=== PATIENT | female | born 1965 | race Caucasian/White ===

== ENCOUNTER 2017-08-10 16:04 | Emergency (ER) | payer OTHER ==
[~2017-08-10] VITALS: Ht 160 cm; Wt 68.6 kg
[~2017-08-10 16:04] MED LIST: AMITIZA24 MCG PO; CYMBALTA 60MG60 MG PO; DESYREL 100MG100 MG PO; PROTONIX20 MG PO; SYNTHROID0.112 MG/T PO; VALTREX 50500 MG/TAB PO; XANAX 1MG1 MG PO
[2017-08-10 16:08] VITALS: TEMP 98.2
[2017-08-10] MEDS ORDERED: FLOVENT 110MCG7.9 GM IH (16:26)
[2017-08-10] MEDS ORDERED: PROTONIX 40MG T40 MG PO (16:26)
[2017-08-10] MEDS ORDERED: TYLENOL W/COD1 UDTAB PO (17:59)
[2017-08-10] MEDS ORDERED: VOLTAREN 75 DR75 MG PO (17:59)
[2017-08-10 18:11] VITALS: BP 120/91; PULSE 76
== END 2017-08-10 18:09 | disposition home or self-care (01) ==
LOC: COL.ER 16:04
DX: R51 Headache (principal); E03.9 Hypothyroidism, unspecified; R11.0 Nausea; R20.0 Anesthesia of skin
CPT/HCPCS: J3010

== ENCOUNTER 2017-12-19 10:21 | Emergency (ER) | payer OTHER ==
[~2017-12-19] VITALS: Ht 160 cm; Wt 70.9 kg
[~2017-12-19 10:21] MED LIST changes: +FLOVENT 110MCG7.9 GM IH; +PROTONIX 40MG T40 MG PO; +TYLENOL W/COD1 UDTAB PO; +VOLTAREN 75 DR75 MG PO
[2017-12-19 11:30] LABS: INFLUENZA A NEGATIVE; INFLUENZA B NEGATIVE
[2017-12-19] MEDS ORDERED: PREDNISONE20 MG PO (11:52)
[2017-12-19 12:06] VITALS: BP 116/83; PULSE 88; TEMP 98
== END 2017-12-19 12:05 | disposition home or self-care (01) ==
LOC: COL.ER 10:21
PROVIDERS: Nurse Practitioner
DX: J44.9 Chronic obstructive pulmonary disease, unspecified (principal); K58.9 Irritable bowel syndrome, unspecified; E07.9 Disorder of thyroid, unspecified; F17.210 Nicotine dependence, cigarettes, uncomplicated; Z98.51 Tubal ligation status; Z90.49 Acquired absence of other specified parts of digestive tract; Z79.51 Long term (current) use of inhaled steroids

== ENCOUNTER 2018-01-05 10:50 | Emergency (ER) | payer OTHER ==
[~2018-01-05 10:50] MED LIST changes: +PREDNISONE20 MG PO
[2018-01-05 10:58] VITALS: BP 130/73; PULSE 86; TEMP 98.1
[2018-01-05] MEDS ORDERED: ASPIRIN 81M81 MG/TA2 PO (11:42)
== END 2018-01-05 11:53 | disposition home or self-care (01) ==
LOC: COL.ER 10:50
DX: S01.01XD Laceration without foreign body of scalp, subsequent encounter (principal); I10 Essential (primary) hypertension; Z79.82 Long term (current) use of aspirin; Z79.51 Long term (current) use of inhaled steroids; X58.XXXD Exposure to other specified factors, subsequent encounter

== ENCOUNTER 2019-01-15 11:38 | Emergency (ER) | payer OTHER ==
[~2019-01-15] VITALS: Ht 160 cm; Wt 68.2 kg
[~2019-01-15 11:38] MED LIST changes: +ASPIRIN 81M81 MG/TA2 PO
[2019-01-15 11:45] VITALS: TEMP 97.4
[2019-01-15 16:40] VITALS: BP 121/89; PULSE 78
[2019-01-16 15:03] LABS: COLLECTION METHOD CLEAN CATCH
[2019-01-16 15:05] LABS: MUCOUS Present /lpf; PH 5 (5-8); SQUAMOUS EPITHELIAL 0-2 /hpf; URINE APPEARANCE Clear; URINE BACTERIA None Seen /hpf; URINE BILIRUBIN Negative (NEGATIVE); URINE BLOOD Negative (NEGATIVE); URINE COLOR Yellow; URINE GLUCOSE Negative (NEGATIVE); URINE KETONE Negative (NEGATIVE); URINE LEUKOCYTE ESTERASE Negative (NEGATIVE); URINE NITRATE Negative (NEGATIVE); URINE PROTEIN(semi-quant) Negative (NEGATIVE); URINE RBC 0-2 /hpf; URINE UROBILINOGEN Negative (NEGATIVE)
[2019-01-16 15:21] LABS: BASO # 0.1 (0.0-0.2); BASO % 0.9 % (0.0-2.0); EOS # 0.3 (0.0-0.7); GRAN # 4.3 (1.4-6.5); GRAN % 55.3 % (42.2-75.2); HEMATOCRIT 42.5 % (37.0-47.0); LYMPH # 2.7 (1.2-3.4); LYMPH % 34.3 % (20.0-51.0); MEAN CELL VOLUME 91 fl (80.0-100.0); MEAN CORPUSCULAR HEMOGLOBIN 30 pg (27.0-31.0); MEAN CORPUSCULAR HGB CONC 33 g/dl (33.0-37.0); MEAN PLATELET VOLUME 10.1 fl (7.4-10.4); MONO # 0.4 (0.1-0.6); MONO % 5.2 % (1.7-9.3); PLATELET COUNT 232 K/mm3 (130-400); RED BLOOD COUNT 4.66 M/mm3 (4.10-5.30); REDCELL DISTRIBUTION WIDTH-CV 14.3 % (11.5-14.5)
[2019-01-16 15:53] LABS: ALANINE AMINOTRANSFERASE 24 U/L (9-52); ALBUMIN 4.3 gm/dL (3.5-5.0); ALKALINE PHOSPHATASE 82 U/L (50-136); ANION GAP 6 mmol/L (7-16); AST,SGOT 29 U/L (15-37); BILIRUBIN,TOTAL 0.4 mg/dL (0.0-1.0); BLOOD UREA NITROGEN 10 mg/dL (7-17); C-REACTIVE PROTEIN < 0.5 mg/dL (0.0-0.9); CALCIUM 9.8 mg/dL (8.4-10.2); CARBON DIOXIDE 29 mmol/L (22-30); CHLORIDE 104 mmol/L (98-107); CREATININE, serum 0.69 mg/dL (0.52-1.25); GLUCOSE 87 mg/dL (74-106); SODIUM 139 mmol/L (137-145); TOTAL PROTEIN 7.5 gm/dL (6.4-8.2); TROPONIN-I < 0.012 ng/mL (0.000-0.035)
== END 2019-01-15 16:42 | disposition home or self-care (01) ==
LOC: COL.ER 11:38
PROVIDERS: Family Medicine
DX: R07.89 Other chest pain (principal); E78.5 Hyperlipidemia, unspecified; F17.210 Nicotine dependence, cigarettes, uncomplicated; Z79.82 Long term (current) use of aspirin
CPT/HCPCS: J1170

== ENCOUNTER 2021-06-06 22:25 | Emergency (ER) | payer BC, OTHER ==
[~2021-06-06 22:25] MED LIST changes: +CLARITIN 1010 MG/TAB PO; +CRESTOR20 MG PO; +EPA FISH OIL1 SGL PO; +FIORICET 325 MG1 TA1 PO; +MOTRIN 800800 MG/TAB PO; +PROAIR HFA0.09 MG/AC IH; +SEROQUEL XR50 MG PO; +TAMIFLU 75MG75 MG PO; +ZITHROMAX 250M250 MG PO; +[UNRECOGNIZED DRUG - OTHER]
[2021-06-06 22:39] LABS: COLLECTION METHOD CLEAN CATCH
[2021-06-06 22:48] LABS: PH 7 (5-8); SQUAMOUS EPITHELIAL 0-2 /hpf; URINE APPEARANCE Clear; URINE BACTERIA None Seen /hpf; URINE BILIRUBIN Negative (NEGATIVE); URINE BLOOD Negative (NEGATIVE); URINE COLOR Colorless; URINE GLUCOSE Negative (NEGATIVE); URINE KETONE Negative (NEGATIVE); URINE LEUKOCYTE ESTERASE Negative (NEGATIVE); URINE NITRATE Negative (NEGATIVE); URINE PROTEIN(semi-quant) Negative (NEGATIVE); URINE RBC None Seen /hpf; URINE UROBILINOGEN Negative (NEGATIVE)
[2021-06-06 22:54] LABS: TRICYCLIC ANTIDEPRESS URINE NEGATIVE
[2021-06-06 23:28] LABS: BASO # 0.1 (0.0-0.2); BASO % 0.7 % (0.0-2.0); EOS # 0.3 (0.0-0.7); EOS % 3.2 % (0-4.0); GRAN # 4.1 (1.4-6.5); GRAN % 42.9 % (42.2-75.2); HEMATOCRIT 46.8 % (37.0-47.0); HEMOGLOBIN 15.8 g/dl (12.5-16.0); LYMPH # 4.4 (1.2-3.4); LYMPH % 46.8 % (20.0-51.0); MEAN CELL VOLUME 94 fl (80.0-100.0); MEAN CORPUSCULAR HEMOGLOBIN 32 pg (27.0-31.0); MEAN CORPUSCULAR HGB CONC 34 g/dl (33.0-37.0); MEAN PLATELET VOLUME 9.8 fl (7.4-10.4); MONO # 0.5 (0.1-0.6); MONO % 5.7 % (1.7-9.3); PLATELET COUNT 252 K/mm3 (130-400); RED BLOOD COUNT 4.96 M/mm3 (4.10-5.30)
[2021-06-06 23:43] LABS: ALANINE AMINOTRANSFERASE 59 U/L (4-34); ALBUMIN 4.8 gm/dL (3.5-5.0); ALCOHOL(ethanol),MEDICAL 129 mg/dL; ALKALINE PHOSPHATASE 81 U/L (50-136); ANION GAP 4 mmol/L (7-16); AST,SGOT 64 U/L (15-37); BILIRUBIN,TOTAL 0.2 mg/dL (0.0-1.0); BLOOD UREA NITROGEN 8 mg/dL (7-17); CALCIUM 10.2 mg/dL (8.4-10.2); CARBON DIOXIDE 32 mmol/L (22-30); CHLORIDE 106 mmol/L (98-107); CREATININE, serum 0.51 (0.52-1.25); GLUCOSE 112 mg/dL (74-106); POTASSIUM 4.1 mmol/L (3.4-5.0); SODIUM 142 mmol/L (137-145); TOTAL PROTEIN 8.1 gm/dL (6.4-8.2)
[2021-06-06 23:45] LABS: ACETAMINOPHEN < 10 ug/mL (10-30); SALICYLATE < 1.0 mg/dL
[2021-06-07 04:07] VITALS: BP 109/73; PULSE 80; TEMP 98.1
== END 2021-06-07 04:07 | disposition home or self-care (01) ==
LOC: COL.ER 22:25
PROVIDERS: Nurse Practitioner Primary Care
DX: F10.129 Alcohol abuse with intoxication, unspecified (principal); R45.851 Suicidal ideations; F32.9 Major depressive disorder, single episode, unspecified; F41.9 Anxiety disorder, unspecified; F17.210 Nicotine dependence, cigarettes, uncomplicated; Y90.6 Blood alcohol level of 120-199 mg/100 ml; Z79.899 Other long term (current) drug therapy

== ENCOUNTER → 2022-03-16 | Outpatient (CLI) | payer BC, OTHER | LOC: MC.RAD 12:36 | DX: N60.02 Solitary cyst of left breast (principal) ==

== ENCOUNTER 2022-05-02 15:15 | Emergency (ER) | payer BC, OTHER ==
[~2022-05-02] VITALS: Ht 157.5 cm; Wt 66.4 kg
[2022-05-02 16:26] LABS: COLLECTION METHOD CLEAN CATCH
[2022-05-02 16:33] LABS: MUCOUS Present (NOT PRESENT); PH 6 (5-8); SQUAMOUS EPITHELIAL 0-2 /hpf (0-10); URINE APPEARANCE Clear (CLEAR/HAZY); URINE BACTERIA Rare /hpf (NONE SEEN); URINE BILIRUBIN Negative (NEGATIVE); URINE BLOOD Negative (NEGATIVE); URINE COLOR Yellow (YELLOW); URINE GLUCOSE Negative (NEGATIVE); URINE KETONE Negative (NEGATIVE); URINE LEUKOCYTE ESTERASE Negative (NEGATIVE); URINE NITRATE Negative (NEGATIVE); URINE PROTEIN(semi-quant) Negative (NEGATIVE); URINE RBC 0-2 /hpf (0-2); URINE UROBILINOGEN Negative (NEGATIVE)
[2022-05-02 16:54] LABS: BASO # 0.1 K/mm3 (0.0-0.2); BASO % 0.7 % (0.0-2.0); EOS # 0.2 K/mm3 (0.0-0.7); EOS % 2.8 % (0.0-4.0); GRAN # 4.3 K/mm3 (1.4-6.5); GRAN % 52.1 % (42.2-75.2); HEMATOCRIT 40.3 % (37.0-47.0); HEMOGLOBIN 13.9 g/dl (12.5-16.0); LYMPH % 36.7 % (20.0-51.0); MEAN CELL VOLUME 89 fl (80.0-100.0); MEAN CORPUSCULAR HEMOGLOBIN 31 pg (27-31); MEAN CORPUSCULAR HGB CONC 35 g/dl (33.0-37.0); MEAN PLATELET VOLUME 10.3 fl (7.4-10.4); MONO # 0.6 K/mm3 (0.1-0.6); MONO % 7.3 % (1.7-9.3); PLATELET COUNT 229 K/mm3 (130-400); RED BLOOD COUNT 4.52 M/mm3 (4.10-5.30); REDCELL DISTRIBUTION WIDTH-CV 12.7 % (11.5-14.5)
[2022-05-02 17:13] LABS: ALBUMIN 3.4 gm/dL (3.5-5.0); BILIRUBIN,TOTAL 0.2 mg/dL (0.2-1.2); C-REACTIVE PROTEIN 0.27 mg/dL (0.00-0.50); CALCIUM 8.5 mg/dL (8.4-10.2); CREATININE, serum 0.65 mg/dL (0.57-1.11); POTASSIUM 3.6 mmol/L (3.5-4.5); TOTAL PROTEIN 6.4 gm/dL (6.2-8.1)
[2022-05-02] MEDS ORDERED: BENTYL 20MG20 MG/TAB PO ×2 (18:50)
[2022-05-02 19:09] VITALS: BP 138/93; PULSE 83; TEMP 97.9
== END 2022-05-02 19:09 | disposition home or self-care (01) ==
LOC: COL.ER 15:15
PROVIDERS: Family Medicine; Physician Assistant
DX: R10.12 Left upper quadrant pain (principal); Z90.49 Acquired absence of other specified parts of digestive tract; Z87.19 Personal history of other diseases of the digestive system; Z98.890 Other specified postprocedural states; Z28.311 Partially vaccinated for COVID-19
CPT/HCPCS: J0780; J1885; J2270; J2405; J7030; Q9967

== ENCOUNTER 2024-06-01 16:23 | Emergency (ER) | payer BC, OTHER ==
[~2024-06-01] VITALS: Ht 160 cm; Wt 50.0 kg
[~2024-06-01 16:23] MED LIST changes: +BENTYL 20MG20 MG/TAB PO
[2024-06-01 16:32] VITALS: TEMP 98.6
[2024-06-01] MEDS ORDERED: diphenhydrAMINE 50 MG/ML 1 ML VIAL IV ONE (17:00)
[2024-06-01] MEDS ORDERED: NS 1,000 ML IV ONE (17:00)
[2024-06-01] MEDS ORDERED: Morphine 4 MG/ML VIAL IV PRN (17:00)
[2024-06-01] MEDS ORDERED: Ketorolac 15 MG/ML VIAL IV ONE (17:00)
[2024-06-01 17:23] LABS: BASO # 0.1 K/mm3 (0.0-0.2); BASO % 0.7 % (0.0-2.0); EOS # 0.6 K/mm3 (0.0-0.7); EOS % 6.6 % (0.0-4.0); GRAN % 44.7 % (42.2-75.2); HEMATOCRIT 37.3 % (37.0-47.0); HEMOGLOBIN 11.9 g/dl (12.5-16.0); LYMPH # 3.6 K/mm3 (1.2-3.4); LYMPH % 40.2 % (20.0-51.0); MEAN CELL VOLUME 90 fl (80.0-100.0); MEAN CORPUSCULAR HEMOGLOBIN 29 pg (27-31); MEAN CORPUSCULAR HGB CONC 32 g/dl (33.0-37.0); MEAN PLATELET VOLUME 9.8 fl (7.4-10.4); MONO # 0.7 K/mm3 (0.1-0.6); MONO % 7.2 % (1.7-9.3); PLATELET COUNT 319 K/mm3 (130-400); RED BLOOD COUNT 4.16 M/mm3 (4.10-5.30); REDCELL DISTRIBUTION WIDTH-CV 14.4 % (11.5-14.5)
[2024-06-01 17:35] LABS: ALBUMIN 3.5 g/dL (3.5-5.0); ALKALINE PHOSPHATASE 111 U/L (40-150); ANION GAP 12 mmol/L (7-16); AST,SGOT 9 U/L (5-34); BILIRUBIN,TOTAL 0.1 mg/dL (0.2-1.2); BLOOD UREA NITROGEN 18 mg/dL (10-20); CHLORIDE 103 mEq/L (98-107); GLUCOSE 104 mg/dL (70-99); LIPASE 46 U/L (8-78); SODIUM 139 mEq/L (136-145); TOTAL PROTEIN 6.4 g/dl (6.2-8.1)
[2024-06-01 17:46] LABS: ALANINE AMINOTRANSFERASE < 6 U/L (0-55)
[2024-06-01] MEDS ORDERED: NORCO 325 MG-51 TAB PO (18:21)
[2024-06-01] MEDS ORDERED: Morphine 4 MG/ML VIAL IV ONE (18:30)
[2024-06-01 18:46] VITALS: BP 95/59; PULSE 74
== END 2024-06-01 18:47 | disposition home or self-care (01) ==
LOC: COL.ER 16:23
PROVIDERS: Personal Emergency Response Attendant
DX: R10.9 Unspecified abdominal pain (principal); R51.9 Headache, unspecified; Z86.69 Personal history of other diseases of the nervous system and sense organs
CPT/HCPCS: J0780; J1200; J1885; J2270; J7030

== ENCOUNTER 2024-09-04 13:47 | Emergency (ER) | payer BC, OTHER ==
[~2024-09-04] VITALS: Ht 160 cm; Wt 72.7 kg
[~2024-09-04 13:47] MED LIST changes: +NORCO 325 MG-51 TAB PO
[2024-09-04 13:48] VITALS: TEMP 98.2
[2024-09-04] MEDS ORDERED: LORazepam 2 MG/ML 1 ML VIAL IV ONE ×2 (14:00→15:30)
[2024-09-04 14:01] LABS: BASO # 0.1 K/mm3 (0.0-0.2); BASO % 0.5 % (0.0-2.0); EOS # 0.4 K/mm3 (0.0-0.7); EOS % 2.2 % (0.0-4.0); GRAN # 13.1 K/mm3 (1.4-6.5); GRAN % 78.8 % (42.2-75.2); HEMATOCRIT 41.8 % (37.0-47.0); HEMOGLOBIN 14.2 g/dl (12.5-16.0); LYMPH # 2.3 K/mm3 (1.2-3.4); LYMPH % 13.7 % (20.0-51.0); MEAN CELL VOLUME 89 fl (80.0-100.0); MEAN CORPUSCULAR HEMOGLOBIN 30 pg (27-31); MEAN CORPUSCULAR HGB CONC 34 g/dl (33.0-37.0); MEAN PLATELET VOLUME 9.2 fl (7.4-10.4); MONO # 0.7 K/mm3 (0.1-0.6); MONO % 4.1 % (1.7-9.3); PLATELET COUNT 380 K/mm3 (130-400); REDCELL DISTRIBUTION WIDTH-CV 14.5 % (11.5-14.5)
[2024-09-04 14:17] LABS: ALANINE AMINOTRANSFERASE 8 U/L (0-55); ALKALINE PHOSPHATASE 107 U/L (40-150); ANION GAP 11 mmol/L (7-16); AST,SGOT 13 U/L (5-34); BILIRUBIN,TOTAL 0.2 mg/dL (0.2-1.2); BLOOD UREA NITROGEN 13 mg/dL (10-20); CHLORIDE 102 mEq/L (98-107); CREATININE, serum 0.75 mg/dL (0.57-1.11); GLUCOSE 109 mg/dL (70-99); POTASSIUM 3.5 mEq/L (3.5-4.5); SODIUM 137 mEq/L (136-145); TOTAL PROTEIN 7.2 g/dl (6.2-8.1)
[2024-09-04 14:21] LABS: ALCOHOL(ethanol),MEDICAL < 10 mg/dL (0-10); SALICYLATE < 5.0 mg/dL (15.0-30.0)
[2024-09-04 16:40] LABS: COLLECTION METHOD CLEAN CATCH
[2024-09-04 16:49] LABS: URINE APPEARANCE CLEAR (CLEAR/HAZY); URINE BLOOD NEGATIVE (NEGATIVE); URINE COLOR YELLOW (YELLOW); URINE GLUCOSE NEGATIVE (NEGATIVE); URINE KETONE NEGATIVE (NEGATIVE); URINE NITRATE NEGATIVE (NEGATIVE); URINE PROTEIN(semi-quant) NEGATIVE (NEGATIVE); URINE UROBILINOGEN 0.2 E.U/dL (0.2-1.0)
[2024-09-04 17:03] LABS: TRICYCLIC ANTIDEPRESS URINE POSITIVE (NEGATIVE)
[2024-09-04] MEDS ORDERED: ATIVAN 1MG T1 MG/TAB PO (17:16)
[2024-09-04 17:17] VITALS: BP 150/98; PULSE 89
[2024-09-04] MEDS ORDERED: LORazepam 1 MG TAB PO ONE (17:30)
== END 2024-09-04 17:32 | disposition home or self-care (01) ==
LOC: COL.ER 13:47
PROVIDERS: Emergency Medicine
DX: R56.9 Unspecified convulsions (principal)
CPT/HCPCS: J2060